=== PATIENT | female | born 1960 | race African-American/Black ===

== ENCOUNTER 2022-09-29 07:37 | Emergency (ER) | payer MEDICAID, OTHER ==
[~2022-09-29] VITALS: Ht 170.2 cm; Wt 77.0 kg
[~2022-09-29 07:37] MED LIST: ALBU90AE INH; HYDR-4001 MT; IBUP-2029 PO
[2022-09-29] MEDS ORDERED: KETOROLAC 60MG/2ML VIAL IM ONE (08:00)
[2022-09-29] MEDS ORDERED: ACETAMINOPHEN WITH CODEINE 300/30MG TABLET PO ONE (08:00)
[2022-09-29] MEDS ORDERED: MORPHINE SULFATE 4 MG/ML CPJ (NOT FOR IM USE) IV ONE ×2 (09:15→10:30)
[2022-09-29 09:44] LABS: BASOPHILS % 0.7 % (0.0-2.0); EOSINOPHILS % 0.3 % (0.0-5.0); HEMATOCRIT. 38.9 % (36.0-48.0); HEMOGLOBIN. 13.4 g/dL (12.0-16.0); LYMPHOCYTES % 27.4 % (20.0-50.0); MEAN CORPUSCULAR HEMOGLOBIN 32.1 pg (28.0-32.0); MEAN CORPUSCULAR VOLUME 93.6 fL (81.0-99.0); MEAN PLATELET VOLUME 7.1 fl (7.4-10.4); MONOCYTES % 6.6 % (2.0-8.0); PLATELET 264 x1000/uL (130-400); RED BLOOD CELL COUNT 4.16 mill/uL (4.2-5.4); RED CELL DISTRIBUTION WIDTH 13.3 % (11.6-14.6)
[2022-09-29 09:59] LABS: CHLORIDE 109 mEq/L (98-107)
[2022-09-29] MEDS ORDERED: ONDANSETRON HCL 4MG/2ML INJ IV ONE (11:45)
[2022-09-29] MEDS ORDERED: IPRATROPIUM/ALBUTEROL 0.5-3(2.5)MG/3ML NEB HHN PRN (12:15)
[2022-09-29] MEDS ORDERED: MORPHINE SULFATE 2 MG/ML CPJ (NOT FOR IM USE) IV PRN (12:15)
[2022-09-29] MEDS ORDERED: ONDANSETRON HCL 4MG/2ML INJ IV PRN (12:15)
[2022-09-29] MEDS ORDERED: ACETAMINOPHEN 325MG TABLET PO PRN (12:15)
[2022-09-29] MEDS ORDERED: CLONIDINE 0.1MG TABLET PO PRN (12:15)
[2022-09-29] MEDS ORDERED: DIPHENHYDRAMINE 50MG/ML VIAL IV PRN (12:15)
[2022-09-29] MEDS ORDERED: NALOXONE HCL 0.4MG/ML VIAL IV PRN (12:30)
[2022-09-29 14:38] VITALS: BP 134/71
== END 2022-09-29 14:52 | disposition left against medical advice (07) ==
LOC: ER 07:37 → EDBEDREQ 10:32 → EDBEDREQTM 10:32 → ER 14:52 → CANBEDREQ 10-01 17:57
DX: M25.552 Pain in left hip (principal); J45.909 Unspecified asthma, uncomplicated; I10 Essential (primary) hypertension; Z90.710 Acquired absence of both cervix and uterus; Z90.49 Acquired absence of other specified parts of digestive tract
CPT/HCPCS: 36415; 73502; 80053; 85025; 96372; 96374; 96375; 96376; 99285; J1885; J2270; J2405; Z7610